=== PATIENT | female | born 1980 | race Caucasian/White ===

== ENCOUNTER 2025-02-14 18:34 | Day surgery (SDC) | payer BC ==
[2025-02-14] MEDS ORDERED: Sodium Chloride 0.9% 10 ML Syringe FLUSH PRN (19:35)
[2025-02-14] MEDS: Ondansetron 4 MG/2 ML SDV IVPUSH ONE (19:54)
[2025-02-14 19:57] LABS: BASOPHILS ABSOLUTE AUTO 0.0 K/mm3 (0.0-0.2); BASOPHILS PERCENT AUTO 0.4 % (0.0-1.0); EOSINOPHILS ABSOLUTE AUTO 0.4 K/mm3 (0.0-0.4); EOSINOPHILS PERCENT AUTO 3.9 % (0.0-6.0); IMMATURE GRAN ABSOLUTE AUTO 0.03 K/mm3 (0.00-0.05); IMMATURE GRAN PERCENT AUTO 0.3 % (0.0-0.4); LYMPHOCYTES ABSOLUTE AUTO 2.1 K/mm3 (1.0-4.8); LYMPHOCYTES PERCENT AUTO 20.6 % (24.0-44.0); MEAN PLATELET VOLUME 9.8 fl (9.4-12.3); MONOCYTES ABSOLUTE AUTO 1.0 K/mm3 (0.0-0.8); MONOCYTES PERCENT AUTO 9.5 % (0.0-8.0); NEUTROPHILS ABSOLUTE AUTO 6.6 K/mm3 (1.8-7.7); NEUTROPHILS PERCENT AUTO 65.3 % (41.0-71.0); NRBC ABSOLUTE 0.00 (0.00-0.02); NRBC PERCENT 0.0 % (0.0-0.2); PLATELET COUNT,PLT 271 K/mm3 (150-400); RED BLOOD CELL COUNT 3.90 M/mm3 (4.10-5.30); WHITE BLOOD CELL COUNT,WBC 10.17 K/mm3 (3.9-11.3)
[2025-02-14 20:21] LABS: A/G RATIO 0.9 (1-2); ALANINE AMINOTRANSFERASE,ALT 28 U/L (14-59); ASPARTATE AMNIOTRANSFERASE,AST 14 U/L (15-37); BILIRUBIN TOTAL 0.5 mg/dL (0.2-1.0); BLOOD UREA NITROGEN,BUN 9 mg/dL (7-18); CARBON DIOXIDE,CO2 28 mEq/L (21-32); CHLORIDE,CL 101 mEq/L (98-107); CREATININE 0.8 mg/dL (0.55-1.02); ESTIMATED GFR 92 mL/min (>60); GLUCOSE RANDOM 96 mg/dL (70-99); POTASSIUM,K 4.2 mEq/L (3.5-5.1); PROTEIN TOTAL,TP 7.4 g/dl (6.4-8.2); SODIUM,NA 136 mEq/L (136-145); TROPONIN I HIGH SENSITIVITY < 4 pg/mL (<=51)
[2025-02-14] MEDS: metroNIDAZOLE/Normal Saline 500 MG in Premix Bag 1 BAG IV SCH (21:32)
[2025-02-14] MEDS ORDERED: Ondansetron 4 MG/2 ML SDV IVPUSH PRN (21:45)
[2025-02-15] MEDS ORDERED: propofoL 500 MG/50 ML 50 ML ONE ×2 (09:05→11:05)
[2025-02-15] MEDS ORDERED: fentaNYL 250 MCG/5 ML SDV ONE (09:05)
[2025-02-15] MEDS ORDERED: Midazolam 1 MG/ML 2 ML SDV ONE (09:05)
[2025-02-15] MEDS ORDERED: Propofol 200 MG/20 ML SDV ONE ×4 (09:05→10:41)
[2025-02-15] MEDS ORDERED: Ondansetron 4 MG/2 ML SDV ONE (09:08)
[2025-02-15] MEDS: Lactated Ringers 1,000 ML IV ONE (09:09)
[2025-02-15] MEDS: droPERidol 2.5 MG/ML SDV IVPUSH ONE (09:23)
[2025-02-15] MEDS ORDERED: ePHEDrine 50 MG/ML SDV ONE (09:35)
[2025-02-15] MEDS ORDERED: EPINEPHrine 1 MG/ML SDV ONE (09:38)
[2025-02-15] MEDS ORDERED: Dexamethasone 4 MG/ML 5 ML MDV ONE (09:38)
[2025-02-15] MEDS ORDERED: Ketorolac 30 MG/ML SDV ONE (11:18)
[2025-02-15] MEDS ORDERED: fentaNYL 100 MCG/2 ML SDV IVPUSH PRN (12:43)
[2025-02-15 13:59] VITALS: BP 114/78; PULSE 64
== END 2025-02-15 13:50 | disposition home or self-care (01) ==
LOC: JD.ED 18:34 → JD.SDS 02-15 07:57
PROVIDERS: ATTEND Surgery
DX: K80.00 Calculus of gallbladder with acute cholecystitis without obstruction (principal); Z88.0 Allergy status to penicillin; Z79.899 Other long term (current) drug therapy
CPT/HCPCS: 36415; 47562; 76705; 80053; 83690; 84484; 85025; 86140; 96361; 96365; 96366; 96375; 96376; 99285; J0169; J0665; J0690; J0696; J1100; J1790; J1836; J1885; J2003; J2250; J2405; J2704; J3010; J7030; J7120; 00790; 99140; J1171; J3490